=== PATIENT | female | born 1945 | race Caucasian/White ===

== ENCOUNTER 2017-11-25 15:17 | Emergency (ER) | payer MEDICARE, OTHER ==
[2017-11-25 15:23] VITALS: BP 142/79
--- NOTE | 2017-11-25 15:50 | RAD ---
3 views, left ankle, 3 views, 11/25/2017: History: Fall, ankle pain There is an oblique fracture of the distal fibula just superior to the level of the lateral malleolus. There is very little displacement and no significant angulation at the fracture site. No other fracture or dislocation is identified. There is moderate soft tissue swelling laterally. IMPRESSION: Acute distal fibular fracture.
--- NOTE | 2017-11-25 16:21 | PHYS DOC ---
Past History Past Medical History: Arthritis Past Surgical History: No Surgical History Smoking: Non-smoker Alcohol Use: None Drug Use: None Adult General Chief Complaint Chief Complaint: ANKLE PROBLEM HPI HPI 72-year-old female patient state she lost her balance and fell on ice left ankle without other injuries or loss of consciousness. Patient complaining of pain in left ankle and rated her pain moderate and denies focal neurodeficit. Patient doesn't want to have any pain medication in ER and states she only has pain during walking. Review of Systems Review of Systems Constitutional: Denies fever or chills [] Eyes: Denies change in visual acuity, redness, or eye pain [] HENT: Denies nasal congestion or sore throat [] Respiratory: Denies cough or shortness of breath [] Cardiovascular: No additional information not addressed in HPI [] GI: Denies abdominal pain, nausea, vomiting, bloody stools or diarrhea [] : Denies dysuria or hematuria [] Musculoskeletal: Denies back pain , reports joint pain [] Integument: Denies rash or skin lesions [] Neurologic: Denies headache, focal weakness or sensory changes [] Endocrine: Denies polyuria or polydipsia [] All other systems were reviewed and found to be within normal limits, except as documented in this note. Allergies Allergies Allergies Coded Allergies Type Severity Reaction Last Updated Verified No Known Drug Allergies 11/25/17 No Physical Exam Physical Exam Constitutional: Well developed, well nourished, mild distress, non-toxic appearance. [] HENT: Normocephalic, atraumatic, bilateral external ears normal, oropharynx moist, no oral exudates, nose normal. [] Eyes: PERRLA, EOMI, conjunctiva normal, no discharge. [] Neck: Normal range of motion, no tenderness, supple, no stridor. [] Cardiovascular:Heart rate regular rhythm, no murmur [] Lungs & Thorax: Bilateral breath sounds clear to auscultation [] Skin: Warm, dry, no erythema, no rash. [] Back: No tenderness, no CVA tenderness. [] Extremities: Left ankle without deformity, tenderness and edema in lateral malleolus with limited range of motion without neurovascular deficit Neurologic: Alert and oriented X 3, normal motor function, normal sensory function, no focal deficits noted. [] Psychologic: Affect normal, judgement normal, mood normal. [] Current Patient Data Vital Signs Vital Signs Date Time Temp Pulse Resp B/P (MAP) Pulse Ox O2 Delivery O2 Flow Rate FiO2 11/25/17 15:23 98.1 85 18 95 Room Air EKG EKG [] Radiology/Procedures Radiology/Procedures [ [address] [id number] IMAGING REPORT Signed PATIENT: GARRETT VALENTINE ACCOUNT: [id number] : 1945 LOCATION: ER AGE: 72 SEX: F EXAM STATUS: REG ER ORD. PHYSICIAN: CHET MALIK MD REASON: fall and injury PROCEDURE: ANKLE LEFT 3V 3 views, left ankle, 3 views, 11/25/2017: History: Fall, ankle pain There is an oblique fracture of the distal fibula just superior to the level of the lateral malleolus. There is very little displacement and no significant angulation at the fracture site. No other fracture or dislocation is identified. There is moderate soft tissue swelling laterally. IMPRESSION: Acute distal fibular fracture. DICTATED AND SIGNED BY: IRENE PEREA MD DATE: 11/25/17 1546 CC: CHET MALIK MD; MÓNICA LOUIS MD ~ ] Course & Med Decision Making Course & Med Decision Making Pertinent Imaging studies reviewed. (See chart for details) Evaluation of patient in ER showed 72-year-old female patient with a fall on ice and injury to left ankle. Patient had tenderness without deformity on lateral malleolus with nondisplaced distal fibula fracture. Patient didn't want to have pain medication. Plan to apply splint by [employer] and providing crutches and discharge patient home with instruction to follow with her primary care physician and on-call orthopedic physician. Patient didn't want to have pain medication in ER or prescription for home and states she has already Ultram at home. I've spoken with the patient and/or caregivers. I've explained the patient's condition, diagnosis and treatment plan based on information available to me at this time. I've answered the patient's and/or caregivers questions and addressed any concerns. The patient and/or caregivers have a good understanding the patient's diagnosis, condition and treatment plan as can be expected at this point. Vital signs have been stabilized. The patient's condition is stable for discharge from the emergency department. The patient will pursue further outpatient evaluation with her primary care provider or other designated consulting physician as outlined in the discharge instructions. Patient and/or caregivers are agreeable to this plan of care and follow-up instructions have been explained in detail. The patient and/or caregivers have received these instructions in written format and expressed understanding of these discharge instructions. The patient and her caregivers are aware that if any significant change in condition or worsening of symptoms should prompt him to immediately return to this of the closest emergency department. If an emergent department is not readily available I would encourage him to call 911. [] Dragon Disclaimer Dragon Disclaimer This electronic medical record was generated, in whole or in part, using a voice recognition dictation system. Departure Departure: Impression: Primary Impression: Fracture of distal end of left fibula Additional Impression: Fall from slipping on ice Disposition: 01 HOME, SELF-CARE (At 1625) Condition: IMPROVED Referrals: MÓNICA LOUIS MD (PCP) MARY SOTO MD Patient Instructions: Fibular Fracture, Ankle, Adult, Undisplaced, Treated with Immobilization Additional Instructions: Plan ice on the affected area Follow-up with orthopedic physician in one or 2 days Follow-up with your primary care physician in 3-5 days Return to ER if not getting better Continue home pain medication Problem Qualifiers CHET MALIK MD Nov 25, 2017 16:21
== END 2017-11-25 16:55 | disposition home or self-care (01) ==
LOC: ER 15:17
DX: S82.62XA Displaced fracture of lateral malleolus of left fibula, initial encounter for closed fracture (principal); M19.90 Unspecified osteoarthritis, unspecified site; W00.0XXA Fall on same level due to ice and snow, initial encounter; Y93.89 Activity, other specified; Y99.8 Other external cause status; Y92.89 Other specified places as the place of occurrence of the external cause
CPT/HCPCS: 29515; 73610; 99284

== ENCOUNTER → 2021-10-16 | Outpatient (CLI) | payer MEDICARE, OTHER ==
[2021-10-16 16:24] LABS: BASO % 1 % (0-3); EOS # 0.2 x10^3/uL (0.0-0.7); EOS % 4 % (0-3); LYMPH # 1.7 x10^3/uL (1.0-4.8); LYMPH % 39 % (24-48); MEAN CORPUSCULAR HEMOGLOBIN 21 pg (25-35); MEAN CORPUSCULAR HGB CONC 30 g/dL (31-37); MEAN CORPUSCULAR VOLUME 71 fL (79-100); MONO # 0.6 x10^3/uL (0.0-1.1); MONO % 14 % (0-9); NEUT # 1.9 x10^3uL (1.8-7.7); NEUT % 42 % (31-73); PLATELET COUNT 506 x10^3/uL (140-400); RED BLOOD COUNT 2.77 x10^6/uL (3.50-5.40); RED CELL DISTRIBUTION WIDTH 21.8 % (11.5-14.5); WHITE BLOOD COUNT 4.5 x10^3/uL (4.0-11.0)
[2021-10-16 16:36] LABS: HEMATOCRIT 19.7 % (36.0-47.0); HEMOGLOBIN 5.9 g/dL (12.0-15.5)
[2021-10-16 19:47] LABS: HYPOCHROMIA MARKED
[2021-10-16 19:48] LABS: ANISOCYTOSIS MOD; MICROCYTOSIS MOD; PLT ESTIMATE INCREASED (ADEQUATE)
== END ==
LOC: LAB 15:26
DX: D50.8 Other iron deficiency anemias (principal); R06.02 Shortness of breath
CPT/HCPCS: 36415; 82608; 82728; 82746; 83540; 83550; 85025

== ENCOUNTER 2021-10-17 07:50 | Emergency (ER) | payer MEDICARE, OTHER ==
[2021-10-17] VITALS (16 sets, daily range): BP systolic 113–152; BP diastolic 62–91
[~2021-10-17] VITALS: Ht 152.4 cm; Wt 64.3 kg
[2021-10-17 10:01] LABS: BASO % 1 % (0-3); EOS # 0.1 x10^3/uL (0.0-0.7); EOS % 3 % (0-3); LYMPH # 1.4 x10^3/uL (1.0-4.8); LYMPH % 37 % (24-48); MEAN CORPUSCULAR HEMOGLOBIN 21 pg (25-35); MEAN CORPUSCULAR HGB CONC 30 g/dL (31-37); MEAN CORPUSCULAR VOLUME 70 fL (79-100); MONO # 0.5 x10^3/uL (0.0-1.1); MONO % 14 % (0-9); NEUT # 1.7 x10^3uL (1.8-7.7); NEUT % 45 % (31-73); PLATELET COUNT 454 x10^3/uL (140-400); RED BLOOD COUNT 2.72 x10^6/uL (3.50-5.40); RED CELL DISTRIBUTION WIDTH 21.4 % (11.5-14.5); WHITE BLOOD COUNT 3.8 x10^3/uL (4.0-11.0)
[2021-10-17 10:06] LABS: CALCIUM 8.5 mg/dL (8.5-10.1); CREATININE 0.7 mg/dL (0.6-1.0); GFR 81.6; HEMATOCRIT 19.1 % (36.0-47.0); HEMOGLOBIN 5.8 g/dL (12.0-15.5); POTASSIUM 3.9 mmol/L (3.5-5.1)
[2021-10-17 10:12] LABS: ALBUMIN 3.7 g/dL (3.4-5.0); ALBUMIN/GLOBULIN RATIO 1.1 (1.0-1.7); TOTAL BILIRUBIN 0.3 mg/dL (0.2-1.0)
--- NOTE | 2021-10-17 11:44 | PHYS DOC ---
Past History Past Medical History: Arthritis Past Surgical History: Other Additional Past Surgical Histo: cardiac stents Smoking: Non-smoker Alcohol Use: None Drug Use: None General Adult EDM: Chief Complaint: ABNORMAL LABS HPI: HPI: 76-year-old female presents to emergency room with low hemoglobin. She was sent here by her primary physician because she could not go to an infusion center due to it being closed from COVID-19. Her hemoglobin was reported to be below 6. The patient has had anemia for about a year. There have been multiple tests and investigations into the cause. It appears to be iron deficiency. The patient is not currently on iron. She had a cardiology appointment yesterday and they discovered her low hemoglobin. Patient states she has been feeling short of breath, occasionally dizzy and decreased exercise tolerance. Review of Systems: Review of Systems: Constitutional: Denies fever or chills Eyes: Denies change in visual acuity HENT: Denies nasal congestion or sore throat Respiratory: shortness of breath Cardiovascular: Denies chest pain or edema GI: Denies abdominal pain, nausea, vomiting, bloody stools or diarrhea : Denies dysuria Musculoskeletal: Denies back pain or joint pain Integument: Denies rash Neurologic: Dizziness. Denies headache, focal weakness or sensory changes Endocrine: Denies polyuria or polydipsia Lymphatic: Denies swollen glands Psychiatric: Denies depression or anxiety Allergies: Allergies: Allergies Coded Allergies Type Severity Reaction Last Updated Verified sulfasalazine Allergy Unknown 10/17/21 Yes Physical Exam: PE: Constitutional: Well developed, well nourished, no acute distress, non-toxic appearance. [] HENT: Normocephalic, atraumatic, bilateral external ears normal, oropharynx moist, no oral exudates, nose normal. [] Eyes: PERRLA, EOMI, conjunctiva normal, no discharge. [] Neck: Normal range of motion, no tenderness, supple, no stridor. [] Cardiovascular: Heart rate regular rhythm, no murmur [] Lungs & Thorax: Bilateral breath sounds clear to auscultation [] Abdomen: Bowel sounds normal, soft, no tenderness, no masses, no pulsatile robinson s. [] Skin: Warm, dry, no erythema, no rash. [] Back: No tenderness, no CVA tenderness. [] Extremities: No tenderness, no cyanosis, no clubbing, ROM intact, no edema. [] Neurologic: Alert and oriented X 3, normal motor function, normal sensory function, no focal deficits noted. [] Psychologic: Affect normal, judgement normal, mood normal. [] Current Patient Data: Labs: Laboratory Tests Test 10/17/21 09:38 White Blood Count 3.8 x10^3/uL (4.0-11.0) L Red Blood Count 2.72 x10^6/uL (3.50-5.40) L Hemoglobin 5.8 g/dL (12.0-15.5) *L Hematocrit 19.1 % (36.0-47.0) *L Mean Corpuscular Volume 70 fL (79-100) L Mean Corpuscular Hemoglobin 21 pg (25-35) L Mean Corpuscular Hemoglobin Concent 30 g/dL (31-37) L Red Cell Distribution Width 21.4 % (11.5-14.5) H Platelet Count 454 x10^3/uL (140-400) H Neutrophils (%) (Auto) 45 % (31-73) Lymphocytes (%) (Auto) 37 % (24-48) Monocytes (%) (Auto) 14 % (0-9) H Eosinophils (%) (Auto) 3 % (0-3) Basophils (%) (Auto) 1 % (0-3) Neutrophils # (Auto) 1.7 x10^3uL (1.8-7.7) L Lymphocytes # (Auto) 1.4 x10^3/uL (1.0-4.8) Monocytes # (Auto) 0.5 x10^3/uL (0.0-1.1) Eosinophils # (Auto) 0.1 x10^3/uL (0.0-0.7) Basophils # (Auto) 0.0 x10^3/uL (0.0-0.2) Sodium Level 141 mmol/L (136-145) Potassium Level 3.9 mmol/L (3.5-5.1) Chloride Level 107 mmol/L (98-107) Carbon Dioxide Level 22 mmol/L (21-32) Anion Gap 12 (6-14) Blood Urea Nitrogen 17 mg/dL (7-20) Creatinine 0.7 mg/dL (0.6-1.0) Estimated GFR (Cockcroft-Gault) 81.6 BUN/Creatinine Ratio 24 (6-20) H Glucose Level 97 mg/dL (70-99) Calcium Level 8.5 mg/dL (8.5-10.1) Total Bilirubin 0.3 mg/dL (0.2-1.0) Aspartate Amino Transferase (AST) 21 U/L (15-37) Alanine Aminotransferase (ALT) 31 U/L (14-59) Alkaline Phosphatase 46 U/L (46-116) Total Protein 7.0 g/dL (6.4-8.2) Albumin 3.7 g/dL (3.4-5.0) Albumin/Globulin Ratio 1.1 (1.0-1.7) Vital Signs: Vital Signs Date Time Temp Pulse Resp B/P (MAP) Pulse Ox O2 Delivery O2 Flow Rate FiO2 10/17/21 10:29 97.4 70 18 146/69 (94) 98 Room Air EKG: EKG: [] Radiology/Procedures: Radiology/Procedures: [] Heart Score: C/O Chest Pain: N/A Risk Factors: Risk Factors: DM, Current or recent (<one month) smoker, HTN, HLP, family history of CAD, obesity. Risk Scores: Score 0 - 3: 2.5% MACE over next 6 weeks - Discharge Home Score 4 - 6: 20.3% MACE over next 6 weeks - Admit for Clinical Observation Score 7 - 10: 72.7% MACE over next 6 weeks - Early Invasive Strategies Course & Med Decision Making: Course & Med Decision Making Pertinent Labs and Imaging studies reviewed. (See chart for details) The patient's hemoglobin is 5.9. We will transfuse 2 units. The patient had 2 units transfused with no complications. I have advised that she follow-up for repeat labs tomorrow. She is stable for discharge at this time. [] Dragon Disclaimer: Dragon Disclaimer: This electronic medical record was generated, in whole or in part, using a voice recognition dictation system. Departure Departure: Impression: Primary Impression: Anemia Qualified Codes: D50.9 - Iron deficiency anemia, unspecified Disposition: HOME / SELF CARE / HOMELESS Condition: STABLE Referrals: MÓNICA LOUIS MD (PCP) Patient Instructions: Iron Deficiency Anemia Additional Instructions: You need to talk to your doctors office and have repeat labs for your hemoglobin tomorrow. LYLE WORLEY DO Oct 17, 2021 11:44
[2021-10-17 13:54] LABS: ANISOCYTOSIS PRESENT; MICROCYTOSIS PRESENT
[2021-10-17 13:55] LABS: HYPOCHROMIA PRESENT; OVALOCYTES PRESENT; TARGET CELLS PRESENT
[2021-10-17 14:01] LABS: PLT ESTIMATE INCREASED (ADEQUATE)
== END 2021-10-17 17:39 | disposition home or self-care (01) ==
LOC: ER 07:50
DX: D64.9 Anemia, unspecified (principal); M19.90 Unspecified osteoarthritis, unspecified site; Z88.8 Allergy status to other drugs, medicaments and biological substances
CPT/HCPCS: 36415; 36430; 80053; 85025; 86850; 86900; 86901; 86920; 99285; P9016